=== PATIENT | female | born 1965 | race Caucasian/White ===

== ENCOUNTER → 2023-10-11 15:12 | Outpatient (REF) | payer BC, SELFPAY | LOC: RAD 15:12 | PROVIDERS: ATTENDING PHYSICIAN Orthopaedic Surgery; FAMILY PHYSICIAN Family Medicine | DX: Z01.818 Encounter for other preprocedural examination (principal) | CPT/HCPCS: 93005 ==

== ENCOUNTER 2023-10-12 06:17 | Day surgery (SDC) | payer BC, SELFPAY ==
[2023-10-12] VITALS (10 sets, daily range): BP systolic 101–126; BP diastolic 63–79; BMI 23.2
[2023-10-12] MEDS: CELEBREX 200 MG PO (06:29)
[2023-10-12] MEDS: TYLENOL 1000 MG PO (06:29)
[2023-10-12] MEDS: NORMOSOL-R/PLASMALYTE-A 1000 IV (06:30)
[2023-10-12] MEDS: ROXICODONE 5 MG PO (09:06)
== END 2023-10-12 10:16 | disposition home or self-care (01) ==
LOC: SDS 06:17
PROVIDERS: ATTENDING PHYSICIAN Orthopaedic Surgery
DX: S83.231A Complex tear of medial meniscus, current injury, right knee, initial encounter (principal); X50.1XXA Overexertion from prolonged static or awkward postures, initial encounter
CPT/HCPCS: 29881

== ENCOUNTER → 2023-12-15 08:09 | Outpatient (REF) | payer BC, SELFPAY ==
[2023-12-15 09:19] LABS: ALT (SGPT) 32 U/L (0-35); AST (SGOT) 31 U/L (14-36); Albumin 4.2 g/dl (3.5-5.0); Alkaline Phosphatase 45 U/L (38-126); Blood Urea Nitrogen 29 mg/dl (7-17); Calcium 9.4 mg/dl (8.4-10.2); Carbon Dioxide 31 mmol/L (22-30); Chloride 102 mmol/L (98-107); Glucose 90 mg/dl (70-99); HDL Cholesterol 81 mg/dl; LDL Cholesterol, Calculated 87 mg/dl; Potassium 4.9 mmol/L (3.5-5.1); Sodium 142 mmol/L (135-145); Total Bilirubin 0.4 mg/dl (0.2-1.3); Total Cholesterol 177 mg/dl (50-199); Total Protein 6.8 g/dl (6.3-8.2); Triglyceride 49 mg/dl (10-149); Very Low Density Lipoprotein 9 mg/dl (0-30); eGFR > 60.00
[2023-12-15 09:49] LABS: % Basophils 2.1 % (0-2); % Eosinophils 9.3 % (0-6); % Lymphocytes 37.7 % (20.5-51.1); % Monocytes 8.4 % (1.7-9.3); % Neutrophils 42.5 % (42.2-75.2); Absolute Basophils 0.1 10^3/uL (0-0.2); Absolute Eosinophils 0.5 10^3/uL (0-0.7); Absolute Lymphocytes 1.9 10^3/uL (1.2-3.4); Absolute Monocytes 0.4 10^3/uL (0.1-0.6); Absolute Neutrophils 2.2 10^3/uL (1.4-6.5); Hematocrit 41.5 % (37.0-47.0); Hemoglobin 13.4 g/dL (12.0-16.0); Mean Corp Hgb Conc. 32.3 g/dL (33.0-37.0); Mean Corpuscular Hgb 29.3 pg (27.0-31.0); Mean Corpuscular Volume 90.8 fL (81.0-99.0); Mean Platelet Volume 10.3 fL (7.4-10.4); Nucleated Red Blood Cells % 0 %; Platelet Count 263 10^3/uL (130-400); Red Blood Cell Count 4.57 10^6/uL (4.20-5.40); White Blood Cell Count 5.1 10^3/uL (4.8-10.8)
[2023-12-15 09:51] LABS: TSH Reflex To Free T4 2.22 uIU/ml (0.47-4.68)
== END ==
LOC: REG 08:09
PROVIDERS: ATTENDING PHYSICIAN Nurse Practitioner Adult Health
DX: Z00.00 Encounter for general adult medical examination without abnormal findings (principal); Z79.899 Other long term (current) drug therapy; Z13.29 Encounter for screening for other suspected endocrine disorder
CPT/HCPCS: 36415; 80053; 80061; 84443; 85025

== ENCOUNTER 2024-01-02 09:30 | Emergency (ER) | payer BC, SELFPAY ==
[2024-01-02 09:32] VITALS: BP 112/78
[2024-01-02 10:31] VITALS: BMI 23.5
--- NOTE | 2024-01-02 10:50 | ED.GENMED ---
History of Present Illness
General
Chief Complaint: Bowel Problem
Source: patient
Exam Limitations: none
Time Seen by Provider: 01/02/24 10:16
Nursing documentation reviewed up to this point in time: agreed with
History of Present Illness
History of Present Illness:
Patient presents ED secondary to persistent lower abdominal pain over the past 3 days. Abdominal pain described as sharp, across lower abdomen, worse with meals, without any alleviating factors. Denies fever or chills. Denies trauma. Denies back
pain. Denies difficulty with urination. Denies previous history of similar symptoms. Denies recent illness.
Past History
Past History
ED Past Medical History: None
ED Past Surgical History: Gynecological (hyster)
Social History
Tobacco: Non-smoker
Alcohol: Occasional
Family History
Family History: Diabetes
Review of Systems
Review of Systems
Allergies reviewed?: Yes
Constitutional: Reports no symptoms; Denies fever
ABD/GI: Reports abdominal pain; Denies nausea, vomiting or diarrhea
: Reports no symptoms
Musculoskeletal: Reports no symptoms
Skin: Reports no symptoms
Neurological: Reports no symptoms
Phy Exam
Physical Exam
Physical Exam:
Physical Exam
General: no apparent distress, not acutely ill. afebrile
Head: nc/at. eomi
Neck: supple. no meningeal signs.
Abdomen: normal bowel sounds. mild suprapubic/LLQ tenderness to palpation, without rebound/guarding
Neuro: alert and oriented. no focal neurological deficits
Skin: no rash
Psychiatric: well kept. interactive and cooperative
Extremities: no edema. no calf tenderness.
Course
Orders/Labs/Results
Orders:
Orders
01/02/24 10:42
CT Abd/pelvis W Iv Cont Urgent
Comment:
Reason For Exam: LLQ/suprapubic tenderness
01/02/24 10:54
Complete Blood Count/With Diff Urgent
Comprehensive Metabolic Panel Urgent
Abnormal Lab Results
01/02/24
10:54
RBC 3.74 L 10^6/uL
(4.20-5.40)
Hct 35.5 L %
(37.0-47.0)
MCH 34.8 H pg
(27.0-31.0)
Absolute Monos (auto) 1.1 H 10^3/uL
(0.1-0.6)
Lymphocytes % 18.4 L %
(20.5-51.1)
Monocytes % 12.7 H %
(1.7-9.3)
Carbon Dioxide 31 H mmol/L
(22-30)
BUN 18 H mg/dl
(7-17)
01/02/24 10:54
01/02/24 10:54
Vital Signs
Initial and Last Documented VS:
Initial Vital Signs
Temp Pulse Resp BP Pulse Ox
97.7 F 64 18 112/78 99
01/02/24 09:32 01/02/24 09:32 01/02/24 09:32 01/02/24 09:32 01/02/24 09:32
Last Documented Vital Signs
Temp Pulse Resp BP Pulse Ox
97.7 F 63 16 108/71 100
01/02/24 09:32 01/02/24 11:43 01/02/24 11:43 01/02/24 11:43 01/02/24 11:43
MDM/Problems Addressed
MDM/Problems Addressed:
History, exam, and CT abdomen pelvis consistent with acute diverticulitis, without evidence of perforation or abscess formation. Otherwise, patient remains afebrile, hemodynamically stable, and nontoxic-appearing. As such, patient will be
discharged home with antibiotics. Due to what sounds like significant penicillin allergy, patient will be started on Levaquin/Flagyl treatment. Side effects of abx, including refraining from alcohol use as well as potential tendon injury discussed
with patient prior to discharge.
*Critical Care Note
Total Time (30-74mins, 75-104mins- exclusive of procedures): Not Applicable
ED Attending Note
-
Portions of this chart may have been created with voice recognition software.� Occasional wrong word or��sound alike� substitutions may have occurred due to the inherent limitations of voice recognition software.
Discharge Plan
Departure
Patient Disposition: Home (Routine Discharge)
Date of Disposition: 01/02/24
Time of Disposition: 12:16
Patient with high blood pressure during this ER visit?: No
Condition: Good
Discharge Problem:
Diverticulitis
Instructions: Diverticulitis (DC)
Prescriptions:
New
levofloxacin 500 mg tablet
500 mg PO DAILY Qty: 10 0RF
metronidazole 500 mg tablet
500 mg PO TID Qty: 30 0RF
No Action
ibuprofen 200 mg Capsule
400 mg PO Q6H PRN (Reason: pain)
estradiol [Estradiol Transdermal Patch] 0.05 mg/24 hr Patch Weekly
1 patch TRANSDERMAL QWEEK
Metamucil Packet
1 packet PO DAILY
docusate sodium [Stool Softener] 100 mg Capsule
100 mg PO PRN PRN (Reason: constipation)
escitalopram oxalate 10 mg Tablet
10 mg PO DAILY
uqwuwkhm-mnaiyf-bvonvuip acid 500 mg-800 mcg- 50 mg Capsule
1 cap PO DAILY
Vitamin D3
1 dose PO DAILY
calcium
1 dose PO DAILY
Referrals:
UNKNOWN - PT DOES,NOT KNOW [Family Provider] -
Activity Restrictions/Additional Instructions:
As discussed, please follow-up with your primary care physician for reevaluation. Please consider return to ED with worsening symptoms, i.e. fever/worsening pain/vomiting. Your prescriptions have been sent electronically to [facility] pharmacy in
[place].
Interventions
Interventions:
*Risk Screen - Suicide Last Done: 01/02/24 09:32
*General Assessment Last Done: 01/02/24 09:32
*Neglect/Abuse Screening Last Done: 01/02/24 09:32
*Nursing Disposition Last Done: 01/02/24 12:29
NT-Pronhs-Kddftgjvab Assessment Last Done: 01/02/24 10:32
Discharge Date and Time
Discharge Date/Time: 01/02/24 12:29
Print Language: STATELESS
[2024-01-02 11:01] LABS: % Basophils 0.7 % (0-2); % Eosinophils 2.6 % (0-6); % Immature Granulocytes 0.2 % (0-0.5); % Lymphocytes 18.4 % (20.5-51.1); % Monocytes 12.7 % (1.7-9.3); % Neutrophils 65.4 % (42.2-75.2); Absolute Basophils 0.1 10^3/uL (0-0.2); Absolute Eosinophils 0.2 10^3/uL (0-0.7); Absolute Lymphocytes 1.6 10^3/uL (1.2-3.4); Absolute Monocytes 1.1 10^3/uL (0.1-0.6); Absolute Neutrophils 5.6 10^3/uL (1.4-6.5); Hematocrit 35.5 % (37.0-47.0); Mean Corp Hgb Conc. 36.6 g/dL (33.0-37.0); Mean Corpuscular Hgb 34.8 pg (27.0-31.0); Mean Corpuscular Volume 94.9 fL (81.0-99.0); Nucleated Red Blood Cells % 0 %; Platelet Count 225 10^3/uL (130-400); Red Blood Cell Count 3.74 10^6/uL (4.20-5.40); White Blood Cell Count 8.6 10^3/uL (4.8-10.8)
[2024-01-02 11:14] LABS: ALT (SGPT) 27 U/L (0-35); AST (SGOT) 26 U/L (14-36); Alkaline Phosphatase 47 U/L (38-126); Blood Urea Nitrogen 18 mg/dl (7-17); Calcium 8.8 mg/dl (8.4-10.2); Carbon Dioxide 31 mmol/L (22-30); Chloride 101 mmol/L (98-107); Estimated Creatinine Clearance 79 ml/min; Glucose 90 mg/dl (70-99); Potassium 4.5 mmol/L (3.5-5.1); Sodium 138 mmol/L (135-145); Total Bilirubin 0.8 mg/dl (0.2-1.3); Total Protein 6.5 g/dl (6.3-8.2); eGFR > 60.00
[2024-01-02 11:43] VITALS: BP 108/71
== END 2024-01-02 12:29 | disposition home or self-care (01) ==
LOC: EMR 09:30
PROVIDERS: EMERGENCY PHYSICIAN Emergency Medicine
DX: K57.32 Diverticulitis of large intestine without perforation or abscess without bleeding (principal)
CPT/HCPCS: 99284; 74177; 80053; 85025; Q9967

== ENCOUNTER 2024-02-05 02:39 | Emergency (ER) | payer BC, SELFPAY ==
[2024-02-05] VITALS (9 sets, daily range): BP systolic 97–105; BP diastolic 59–72; BMI 22.8
--- NOTE | 2024-02-05 05:03 | ED.GENMED ---
History of Present Illness
<Krystian Francisco DO - Last Filed: 02/05/24 06:47>
General
Chief Complaint: Abdominal Symptoms
Time Seen by Provider: 02/05/24 06:06
<Dilip Cardoza DO, Resident - Last Filed: 02/05/24 11:00>
General
Source: patient, records and family
History of Present Illness
History of Present Illness:
58 female with no reported past medical history presents for an acute episode of left lower quadrant pain and fainting spell. Patient reports she was diagnosed with acute diverticulitis on 01/02/2024, given antibiotics, metronidazole and Levaquin
and subsequently discharged. She had follow-up with a GI doctor who agreed with continuing medications. She also reports she had a second acute flare approximately 1 week prior to this episode where she saw her primary care doctor who gave her
supportive measures, bowel rest and it resolved. She was not given antibiotics during the second flare. This third episode of left lower quadrant pain started abruptly at about 1:30 AM today, patient reports she was in the bathroom having a bowel
movement when she began having extreme left lower quadrant pain. Patient reports she began having vasovagal like prodrome, sweating, flushing nausea she then subsequently passed out. Episode of fainting was witnessed by who reports slight
tonic-clonic movement of the torso, patient did not fall or strike her head. Patient denies tongue biting, return of consciousness took approximately 1 minute, no bowel or bladder incontinence. Patient reports her last colonoscopy was approxi-1
years ago, they did not make any mention diverticulosis/outpouchings at that time. Per GI Dr. Leal it is not uncommon for them neglected to mention diverticulosis in reports.
Past History
<Krystian Francisco DO - Last Filed: 02/05/24 06:47>
Past History
ED Past Medical History: None
ED Past Surgical History: Gynecological (hyster)
Social History
Tobacco: Non-smoker
Alcohol: Occasional
Family History
Family History: Diabetes
Review of Systems
<Dilip Cardoza DO, Resident - Last Filed: 02/05/24 11:00>
Review of Systems
Constitutional: Reports no symptoms; Denies fever
Respiratory: Reports no symptoms
Cardiac: Reports no symptoms
ABD/GI: Reports abdominal pain, nausea and pain
: Reports no symptoms
Musculoskeletal: Reports no symptoms
Neurological: Reports no symptoms
Phy Exam
<Dilip Cardoza DO, Resident - Last Filed: 02/05/24 11:00>
General Physical Exam
General Presentation: well appearing and no apparent distress
General Skin: warm and dry
Cardiovascular Exam
Cardiovascular Exam: regular rate/rhythm, no edema, no murmur and bradycardia
Pulmonary Exam
Pulmonary Exam: lungs clear, no respiratory distress, no crackles, no wheezing and no cough
Gastrointestinal Exam
Gastrointestinal Exam: soft, non distended and tender (Tender left lower quadrant to light and deep palpation. No rebound or guarding on exam)
Neurological Exam
Neurological Exam: alert, oriented x3 and speech normal
Course
<Krystian Francisco, DO - Last Filed: 02/05/24 06:47>
Orders/Labs/Results
Orders:
Orders
02/05/24 02:44
ECG [Electrocardiogram (*1)] Urgent
Reason for Study: Syncope
Other Reason for Exam: VASOVAGAL
02/05/24 02:45
EKG- Treatment ONCE
02/05/24 04:56
Complete Blood Count/With Diff Urgent
Comprehensive Metabolic Panel Urgent
02/05/24 04:59
HYDROmorphone [Dilaudid] 0.5 mg IV NOW STA
Ondansetron Injectable [Zofran] 4 mg IV NOW STA
02/05/24 05:03
Ketorolac [Toradol] 15 mg .ROUTE .STK-MED ONE
Ketorolac [Toradol] 15 mg IV NOW STA
02/05/24 05:04
Ketorolac [Toradol] 15 mg IV NOW STA
02/05/24 06:26
CT Abd/pel W Iv And Oral Contr Urgent
Comment:
Reason For Exam: Left lower quadrant pain
Iohexol [Omnipaque] See Protocol PO NOW STA
02/05/24 10:19
Amoxicillin 875 mg/Clav 125 mg [Augmentin 875 mg/125 mg] 1 tablet PO NOW STA
Abnormal Lab Results
02/05/24
04:56
MCHC 32.5 L g/dL
(33.0-37.0)
Absolute Neuts (auto) 7.8 H 10^3/uL
(1.4-6.5)
Absolute Monos (auto) 0.8 H 10^3/uL
(0.1-0.6)
Lymphocytes % 16.4 L %
(20.5-51.1)
BUN 24 H mg/dl
(7-17)
Glucose 116 H mg/dl
(70-99)
02/05/24 04:56
02/05/24 04:56
Vital Signs
Initial and Last Documented VS:
Initial Vital Signs
Temp Pulse Resp BP Pulse Ox
97.7 F 64 18 100/64 100
02/05/24 02:42 02/05/24 02:42 02/05/24 02:42 02/05/24 02:42 02/05/24 02:42
Last Documented Vital Signs
Temp Pulse Resp BP Pulse Ox
97.7 F 47 12 97/64 96
02/05/24 02:42 02/05/24 10:00 02/05/24 10:00 02/05/24 10:00 02/05/24 10:00
&;Dilip Fekete, DO, Resident - Last Filed: 02/05/24 11:00>
Orders/Labs/Results
Orders:
Orders
02/05/24 02:44
ECG [Electrocardiogram (*1)] Urgent
Reason for Study: Syncope
Other Reason for Exam: VASOVAGAL
02/05/24 02:45
EKG- Treatment ONCE
02/05/24 04:56
Complete Blood Count/With Diff Urgent
Comprehensive Metabolic Panel Urgent
02/05/24 04:59
HYDROmorphone [Dilaudid] 0.5 mg IV NOW STA
Ondansetron Injectable [Zofran] 4 mg IV NOW STA
02/05/24 05:03
Ketorolac [Toradol] 15 mg .ROUTE .STK-MED ONE
Ketorolac [Toradol] 15 mg IV NOW STA
02/05/24 05:04
Ketorolac [Toradol] 15 mg IV NOW STA
02/05/24 06:26
CT Abd/pel W Iv And Oral Contr Urgent
Comment:
Reason For Exam: Left lower quadrant pain
Iohexol [Omnipaque] See Protocol PO NOW STA
02/05/24 10:19
Amoxicillin 875 mg/Clav 125 mg [Augmentin 875 mg/125 mg] 1 tablet PO NOW STA
Abnormal Lab Results
02/05/24
04:56
MCHC 32.5 L g/dL
(33.0-37.0)
Absolute Neuts (auto) 7.8 H 10^3/uL
(1.4-6.5)
Absolute Monos (auto) 0.8 H 10^3/uL
(0.1-0.6)
Lymphocytes % 16.4 L %
(20.5-51.1)
BUN 24 H mg/dl
(7-17)
Glucose 116 H mg/dl
(70-99)
12/31/24 04:56
02/05/24 04:56
Vital Signs
Initial and Last Documented VS:
Initial Vital Signs
Temp Pulse Resp BP Pulse Ox
97.7 F 64 18 100/64 100
02/05/24 02:42 02/05/24 02:42 02/05/24 02:42 02/05/24 02:42 02/05/24 02:42
Last Documented Vital Signs
Temp Pulse Resp BP Pulse Ox
97.7 F 47 12 97/64 96
02/05/24 02:42 02/05/24 10:00 02/05/24 10:00 02/05/24 10:00 02/05/24 10:00
<Joceline Hein MD - Last Filed: 02/05/24 10:22>
Orders/Labs/Results
Orders:
Orders
02/05/24 02:44
ECG [Electrocardiogram (*1)] Urgent
Reason for Study: Syncope
Other Reason for Exam: VASOVAGAL
02/05/24 02:45
EKG- Treatment ONCE
02/05/24 04:56
Complete Blood Count/With Diff Urgent
Comprehensive Metabolic Panel Urgent
02/05/24 04:59
HYDROmorphone [Dilaudid] 0.5 mg IV NOW STA
Ondansetron Injectable [Zofran] 4 mg IV NOW STA
02/05/24 05:03
Ketorolac [Toradol] 15 mg .ROUTE .STK-MED ONE
Ketorolac [Toradol] 15 mg IV NOW STA
02/05/24 05:04
Ketorolac [Toradol] 15 mg IV NOW STA
02/05/24 06:26
CT Abd/pel W Iv And Oral Contr Urgent
Comment:
Reason For Exam: Left lower quadrant pain
Iohexol [Omnipaque] See Protocol PO NOW STA
02/05/24 10:19
Amoxicillin 875 mg/Clav 125 mg [Augmentin 875 mg/125 mg] 1 tablet PO NOW STA
Abnormal Lab Results
02/05/24
04:56
MCHC 32.5 L g/dL
(33.0-37.0)
Absolute Neuts (auto) 7.8 H 10^3/uL
(1.4-6.5)
Absolute Monos (auto) 0.8 H 10^3/uL
(0.1-0.6)
Lymphocytes % 16.4 L %
(20.5-51.1)
BUN 24 H mg/dl
(7-17)
Glucose 116 H mg/dl
(70-99)
02/05/24 04:56
02/05/24 04:56
Vital Signs
Initial and Last Documented VS:
Initial Vital Signs
Temp Pulse Resp BP Pulse Ox
97.7 F 64 18 100/64 100
02/05/24 02:42 02/05/24 02:42 02/05/24 02:42 02/05/24 02:42 02/05/24 02:42
Last Documented Vital Signs
Temp Pulse Resp BP Pulse Ox
97.7 F 47 12 97/64 96
02/05/24 02:42 02/05/24 10:00 02/05/24 10:00 02/05/24 10:00 02/05/24 10:00
<Dilip Cardoza DO, Resident - Last Filed: 02/05/24 11:00>
MDM/Problems Addressed
Differential Diagnosis Includes:
Acute diverticulitis flare, appendicitis, kidney stone, vasovagal syncope
MDM/Problems Addressed:
58 female presents for an acute episode of left lower quadrant pain at 130 this morning
pain woke her up in middle of the night patient reports while on the toilet attempting to having a bowel movement she began having vasovagal like prodrome, nausea, sweating, flushing and had a brief episode fainting
Fainting episode was witnessed by , reports she had some slight tonic-clonic movements of the torso, she did not fall and hit her head, reports return of consciousness took approximately 1 minute
Suspicion for seizure low, likely vasovagal syncope secondary to pain glucose high in ED electrolytes within normal, no history of seizures. Patient reports having a bowel movement in the waiting room of the ED
Patient reports this is her third bout of left lower quadrant pain in the past month, she has had follow-up with a GI doctor at [place] and her primary care physician. Her first episode was treated with metronidazole and Levaquin
She had 1 more episode 1 week prior, this was treated by her PCP with bowel rest and supportive measures, no antibiotics
EKG in emergency department demonstrated sinus bradycardia�patient reports this is normal for her, no chest pain or palpitations prior to fainting spell
On physical exam abdomen is tender in the left lower quadrant only to light and deep palpation, no rebound or guarding present on exam
Symptomatic management with IV Toradol and IV hydromorphone
IV fluid normal saline bolus
Will order CT abdomen pelvis with IV and oral contrast
Educated patient on disease prognosis of diverticulitis, patient reports she would like to follow-up with GI at [place] however she is unable to get an appointment until May
Patient reports her last colonoscopy was approximately 1 year prior, they did not comment on any diverticulosis/outpouchings at that time. She was told by GI Dr. Leal this is not uncommon for the neglect to mention this during colonoscopies
CT abdomen pelvis was read as findings suggesting possible colitis. They did not mention diverticulitis in the read. We reached out to GI doctor on-call who mentioned that sometimes radiology does not read acute diverticulitis as such and will
read as colitis. Patient does not have clinical symptoms consistent with colitis, no diarrhea, no fever, white count within normal limits.
GI recommended that if clinical picture is suspicious for diverticulitis to treat as assumed diverticulitis. GI recommended 2 weeks of oral for acute diverticulitis as patient is previously treated with metronidazole and Levaquin. Patient does
have a allergy to penicillins in the chart, she reports she has tolerated similar medications in the past. We will give patient one-time dose of Augmentin and monitor for 20 minutes before discharge. If patient tolerates medication well will send
home with 2-week course of oral Augmentin, and are facilitating prompt follow-up with GI. Reached out to [facility] to expedite an appointment, appoint was made for 1-2 25.
Patient tolerated oral Augmentin well, no reaction, no hives, no rash, no anaphylaxis. Will prescribe patient a 2-week course of oral Augmentin 875/125 twice daily by mouth to be continued unless told otherwise by PCP or GI doctor.
<Dilip Cardoza DO, Resident - Last Filed: 02/05/24 11:00>
*Critical Care Note
Total Time (30-74mins, 75-104mins- exclusive of procedures): Not Applicable
ED Attending Note
<Krystian Francisco DO - Last Filed: 02/05/24 06:47>
-
Portions of this chart may have been created with voice recognition software.� Occasional wrong word or��sound alike� substitutions may have occurred due to the inherent limitations of voice recognition software.
<Joceline Hein MD - Last Filed: 02/05/24 10:22>
ED Attending Note
Patient seen and examined by attending physician: Yes
I performed the substantive portion of visit, reviewed & personally made and approve the management plan that is documented in note by myself or STEVAN.: Yes
I performed a history and physical exam of patient and discussed management with resident, I reviewed resident's note and agree with documented findings and plan of care.: Yes
ED Attending Note:
58-year-old female with recent episodes of diverticulitis presents emergency department after having an episode of pain that woke her up in the middle the night looking in the left lower quadrant. The pain was rather abrupt in onset and also
sometimes in the left back area. She got out of bed and sat on the toilet because she felt like she might need to have a bowel movement. She then started to feel lightheaded, sweaty, nauseous and reportedly had a syncopal event lasting just under
a minute. There was some myoclonic jerks noted with this, no tongue biting or incontinence, no postictal episode. Patient continues to have discomfort in the left lower quadrant although better now since presenting the emergency department.
Patient denies chest pain, palpitations, dyspnea, upper back pain, severe headache, or other complaints. On exam, abdomen soft, mild tenderness to palpation noted in the left lower quadrant without rebound or guarding. Overall well-appearing.
Labs CT all pending. Differential diagnosis includes but not limited to diverticulitis, kidney stone, bowel obstruction, colitis, etc. etc. Sinus bradycardia noted on ECG without acute ischemic changes. Bradycardia is baseline for him.
CT 1).Imaging for bowel pathology is limited by the lack of enteric contrast
There is mild bowel wall thickening in the sigmoid colon suggesting possible colitis
.
2). There is moderate to large volume of feces throughout the colon suggesting possible constipation
3). 3 cm hepatic hemangioma
History and physical very concerning/consistent with suspected acute diverticulitis. However, CT notes colitis. Patient denies diarrhea, bright red blood per rectum, etc. Case discussed with Dr. Reyez from GI, aware of history, physical, CT, etc.
Agrees that diagnosis very likely acute diverticulitis and recommends 2 weeks of Augmentin and GI follow-up. Given that patient has had now 3 episodes of acute diverticulitis and just 6 months, and has not yet seen GI, I left a message on the GI
[facility] line via [employer] text. Long discussion with patient regarding risks and benefits of medication. She has had a rash with penicillin in the past, but is safely taken amoxicillin in the past. We will give her first dose here. Discussed
with patient portance of follow-up and reasons to return to the ER. She is tolerating p.o., comfortable, nontoxic, and meets criteria for outpatient management
Discharge Plan
Departure
Patient Disposition: Home (Routine Discharge)
Date of Disposition: 02/05/24
Time of Disposition: 10:54
Patient with high blood pressure during this ER visit?: No
Condition: Good
Discharge Problem:
Acute diverticulitis
Instructions: Diverticulitis, Gastrointestinal tract perforation, Diverticulitis - Discharge instructions, Diverticulosis, Abdominal Pain
Prescriptions:
New
amoxicillin-pot clavulanate 875-125 mg tablet
1 tab PO Q12H Qty: 28 0RF
No Action
ibuprofen 200 mg Capsule
400 mg PO Q6H PRN (Reason: pain)
estradiol [Estradiol Transdermal Patch] 0.05 mg/24 hr Patch Weekly
1 patch TRANSDERMAL QWEEK
Metamucil Packet
1 packet PO DAILY
docusate sodium [Stool Softener] 100 mg Capsule
100 mg PO PRN PRN (Reason: constipation)
escitalopram oxalate 10 mg Tablet
10 mg PO DAILY
lmveshxz-oclgzg-foodqjni acid 500 mg-800 mcg- 50 mg Capsule
1 cap PO DAILY
Vitamin D3
1 dose PO DAILY
calcium
1 dose PO DAILY
levofloxacin 500 mg tablet
500 mg PO DAILY Qty: 10 0RF
metronidazole 500 mg tablet
500 mg PO TID Qty: 30 0RF
Referrals:
Soni Weiss CRNP [Family Provider] - Call in 1-3 days for appt
Activity Restrictions/Additional Instructions:
Please follow-up with GI doctor during your appointment at [facility] on 02/07/2024
Please follow-up with your primary care provider, call in 1 to 3 days to schedule an appointment
Please take oral Augmentin twice a day by mouth for a total of 2 weeks unless told otherwise by your primary care provider or gastrointestinal
Please return to the emergency department if you notice any acute, sharp and severe abdominal pain, or with any concerns. Instructions on diverticulitis, diverticulosis, GI tract perforation are all included
Interventions
Interventions:
*Risk Screen - Suicide Last Done: 02/05/24 02:42
*General Assessment Last Done: 02/05/24 04:56
*Neglect/Abuse Screening Last Done: 02/05/24 02:42
ED- Fall Risk Assessment Last Done: 02/05/24 05:27
*ED COVID-19 Vaccine History Last Done: 02/05/24 04:56
AF-Enovta-Dichjbcipu Assessment Last Done: 02/05/24 05:27
Discharge Date and Time
Print Language: MALTESE
[2024-02-05] MEDS: TORADOL 15 MG IV (05:04)
[2024-02-05] MEDS: ZOFRAN 4 MG IV (05:04)
[2024-02-05 05:25] LABS: ALT (SGPT) 30 U/L (0-35); AST (SGOT) 25 U/L (14-36); Albumin 3.9 g/dl (3.5-5.0); Alkaline Phosphatase 72 U/L (38-126); Blood Urea Nitrogen 24 mg/dl (7-17); Calcium 8.7 mg/dl (8.4-10.2); Carbon Dioxide 28 mmol/L (22-30); Chloride 103 mmol/L (98-107); Estimated Creatinine Clearance 70 ml/min; Glucose 116 mg/dl (70-99); Sodium 138 mmol/L (135-145); Total Bilirubin 0.3 mg/dl (0.2-1.3); Total Protein 6.3 g/dl (6.3-8.2); eGFR > 60.00
[2024-02-05] MEDS: OMNIPAQUE 50 ML PO (06:49)
[2024-02-05 06:57] LABS: White Blood Cell Count 10.6 10^3/uL (4.8-10.8)
[2024-02-05 06:58] LABS: % Basophils 0.8 % (0-2); % Eosinophils 1.3 % (0-6); % Immature Granulocytes 0.4 % (0-0.5); % Lymphocytes 16.4 % (20.5-51.1); % Monocytes 7.5 % (1.7-9.3); % Neutrophils 73.6 % (42.2-75.2); Absolute Basophils 0.1 10^3/uL (0-0.2); Absolute Eosinophils 0.1 10^3/uL (0-0.7); Absolute Lymphocytes 1.7 10^3/uL (1.2-3.4); Absolute Monocytes 0.8 10^3/uL (0.1-0.6); Absolute Neutrophils 7.8 10^3/uL (1.4-6.5); Hematocrit 40.9 % (37.0-47.0); Hemoglobin 13.3 g/dL (12.0-16.0); Mean Corp Hgb Conc. 32.5 g/dL (33.0-37.0); Mean Corpuscular Hgb 29.5 pg (27.0-31.0); Mean Corpuscular Volume 90.7 fL (81.0-99.0); Mean Platelet Volume 10.2 fL (7.4-10.4); Nucleated Red Blood Cells % 0 %; Platelet Count 247 10^3/uL (130-400); Red Blood Cell Count 4.51 10^6/uL (4.20-5.40); Red Cell Dist. Width 13.1 % (11.5-14.5)
[2024-02-05] MEDS: AUGMENTIN 875 MG/125 MG 1 TABLET PO (10:25)
== END 2024-02-05 11:24 | disposition home or self-care (01) ==
LOC: EMR 02:39
PROVIDERS: Emergency Medicine; EMERGENCY PHYSICIAN Emergency Medicine; FAMILY PHYSICIAN Nurse Practitioner Adult Health
DX: K57.32 Diverticulitis of large intestine without perforation or abscess without bleeding (principal)
CPT/HCPCS: 96374; 96375; 99284; 74177; 80053; 85025; 93005; Q9967

== ENCOUNTER 2024-04-02 06:33 | Day surgery (SDC) | payer BC, SELFPAY | END 2024-04-02 11:46 | disposition home or self-care (01) | LOC: GI 06:33 | PROVIDERS: ATTENDING PHYSICIAN Internal Medicine Gastroenterology | DX: K57.30 Diverticulosis of large intestine without perforation or abscess without bleeding (principal); K64.8 Other hemorrhoids; D12.3 Benign neoplasm of transverse colon; K57.32 Diverticulitis of large intestine without perforation or abscess without bleeding | CPT/HCPCS: 45385; 88305 ==

== ENCOUNTER 2024-12-05 09:21 | Emergency (ER) | payer BC, SELFPAY ==
[2024-12-05] VITALS (7 sets, daily range): BP systolic 98–130; BP diastolic 66–80
[2024-12-05 10:30] LABS: ALT (SGPT) 24 U/L (0-35); AST (SGOT) 25 U/L (14-36); Albumin 4.0 g/dl (3.5-5.0); Alkaline Phosphatase 42 U/L (38-126); Blood Urea Nitrogen 36 mg/dl (7-17); Calcium 9.1 mg/dl (8.4-10.2); Carbon Dioxide 30 mmol/L (22-30); Chloride 103 mmol/L (98-107); Glucose 84 mg/dl (70-99); Potassium 4.3 mmol/L (3.5-5.1); Sodium 137 mmol/L (135-145); Total Protein 6.5 g/dl (6.3-8.2); eGFR 47.96
[2024-12-05 10:41] LABS: Troponin I < 0.012 ng/ml
[2024-12-05 11:02] LABS: Hematocrit 40.9 % (37.0-47.0); Hemoglobin 13.2 g/dL (12.0-16.0); Mean Corp Hgb Conc. 32.3 g/dL (33.0-37.0); Mean Corpuscular Volume 92.1 fL (81.0-99.0); Nucleated Red Blood Cells % 0 %; Platelet Count 250 10^3/uL (130-400); Red Cell Dist. Width 12.9 % (11.5-14.5)
--- NOTE | 2024-12-05 11:16 | ED.GENMED ---
History of Present Illness
General
Chief Complaint: Chest Pain
Time Seen by Provider: 12/05/24 10:39
History of Present Illness
History of Present Illness:
Patient is a 59-year-old woman who is otherwise healthy presenting to the emergency department with chest pain. Patient states that this morning she was sitting at her desk when she developed a flutter in her chest and then had dizziness nausea and
sweating. She states that she might of worked herself up which is why she got sweaty and nauseous. She denies having this again. She does state that her heart rate normally is in the 40s and her blood pressure is usually in the low 100s. She is
active. She denies any chest pain shortness of breath leg swelling hemoptysis. No long car rides or plane rides. No malignancy. She is on hormone replacement therapy.
Past History
Past History
ED Past Medical History: None
ED Past Surgical History: Gynecological (hyster)
Social History
Tobacco: Non-smoker
Alcohol: Occasional
Family History
Family History: Diabetes
Phy Exam
Physical Exam
Physical Exam:
GENERAL: in no acute distress
HEENT: normocephalic, extraocular movements intact, moist oral mucosa
NECK: normal inspection
RESPIRATORY: no respiratory distress, clear to auscultation bilaterally
CARDIOVASCULAR: regular rhythm bradycardic rate
ABDOMEN/: soft, non-distended, non-tender to palpation, no rebound or guarding
EXTREMITIES: non-tender, no edema/swelling
NEUROLOGIC: awake and alert, moves all extremities
SKIN: warm
Scores
Heart Score for Chest Pain Patients
STEMI patient?: No
History: Slightly or Non-Suspicious
ECG: Normal
Age: >45 - <65 years
Risk Factors: No Risk Factors
Troponin: </= Normal Limit
Heart Score for Chest Pain Patients: 1
Heart Score Risk: 2.5% MACE over next 6 weeks
Course
Orders/Labs/Results
Orders:
Orders
12/05/24 09:28
Electrocardiogram (*1) Urgent
Reason for Study: Chest Pain
12/05/24 09:29
EKG- Treatment ONCE
12/05/24 09:55
Complete Blood Count/With Diff Urgent
TSH Reflex To Free T4 Urgent
Comment: ADD ON
Troponin I Urgent
12/05/24 09:56
Comprehensive Metabolic Panel Urgent
Magnesium Urgent
12/05/24 10:40
Electrocardiogram (*1) Urgent
Reason for Study: Palpitations
EKG- Treatment ONCE
12/05/24 10:50
Add On- LAB Urgent
Tests Added?: magnesium
12/05/24 11:20
Add On- LAB Urgent
Tests Added?: magnesiu, thyroid
12/05/24 13:16
Troponin I Urgent
Abnormal Lab Results
12/05/24 12/05/24
09:55 09:56
MCHC 32.3 L g/dL
(33.0-37.0)
MPV 10.6 H fL
(7.4-10.4)
BUN 36 H mg/dl
(7-17)
Creatinine 1.3 H mg/dL
(0.6-1.0)
12/05/24 09:55
12/05/24 09:56
Vital Signs
Initial and Last Documented VS:
Initial Vital Signs
Temp Pulse Resp BP Pulse Ox
98.3 F 54 18 130/80 100
12/05/24 09:25 12/05/24 09:25 12/05/24 09:25 12/05/24 09:25 12/05/24 09:25
Last Documented Vital Signs
Temp Pulse Resp BP Pulse Ox
98.3 F 45 16 108/66 97
12/05/24 09:25 12/05/24 15:00 12/05/24 14:45 12/05/24 15:00 12/05/24 15:00
MDM/Problems Addressed
Differential Diagnosis Includes:
Patient is a 59-year-old woman presenting to the emergency department with fluttering sensation in her chest as well as some chest tightness when this occurred earlier this morning. On arrival heart rates in the 40s to 50s and exam is otherwise
reassuring. Differential consists of arrhythmia versus electrolyte derangement versus near syncope. Will check blood work EKG.
*Pulse Oximetry
SaO2: 96
Oxygen Mode of Delivery: Room air
Patient hypoxic: no
*Critical Care Note
Total Time (30-74mins, 75-104mins- exclusive of procedures): Not Applicable
Update Note
Update Note:
EKG per my interpretation sinus bradycardia. Blood work reassuring. I did review the monitor and patient remained in sinus bradycardia the entire time. No PVCs. Patient denies any recurrence of her symptoms. Will discharge at this time with
outpatient follow-up and likely Holter monitoring.
ED Attending Note
-
Portions of this chart may have been created with voice recognition software.� Occasional wrong word or��sound alike� substitutions may have occurred due to the inherent limitations of voice recognition software.
Discharge Plan
Departure
Patient Disposition: Home (Routine Discharge)
Date of Disposition: 12/05/24
Time of Disposition: 15:26
Patient with high blood pressure during this ER visit?: No
Discharge Problem:
Bradycardia, sinus
Instructions: Ambulatory heart monitoring
Prescriptions:
No Action
ibuprofen 200 mg Capsule
400 mg PO Q6H PRN (Reason: pain)
estradiol [Estradiol Transdermal Patch] 0.05 mg/24 hr Patch Weekly
1 patch TRANSDERMAL QWEEK
Metamucil Packet
1 packet PO DAILY
docusate sodium [Stool Softener] 100 mg Capsule
100 mg PO PRN PRN (Reason: constipation)
escitalopram oxalate 10 mg Tablet
10 mg PO DAILY
sldezpjn-gkmhiw-hxirwkwd acid 500 mg-800 mcg- 50 mg Capsule
1 cap PO DAILY
Vitamin D3
1 dose PO DAILY
calcium
1 dose PO DAILY
levofloxacin 500 mg tablet
500 mg PO DAILY Qty: 10 0RF
metronidazole 500 mg tablet
500 mg PO TID Qty: 30 0RF
amoxicillin-pot clavulanate 875-125 mg tablet
1 tab PO Q12H Qty: 28 0RF
Referrals:
Soni Weiss CRNP [Family Provider, Internal Medicine]
Activity Restrictions/Additional Instructions:
You have been evaluated in the Emergency Department today. Your evaluation did not show evidence of medical conditions requiring emergent intervention at this time, however we recommend you follow up with your primary care provider for further
testing as an outpatient.
Please follow up with your primary care doctor in 2-3 days.
Return to the ER immediately for worsening or uncontrolled symptoms, headache, chest pain, shortness of breath, persistent vomiting, vision changes, recurrent fainting, or for any other concerning symptoms.
Thank you for choosing us for your care.
Interventions
Interventions:
*Risk Screen - Suicide Last Done: 12/05/24 09:25
*General Assessment Last Done: 12/05/24 09:58
*Neglect/Abuse Screening Last Done: 12/05/24 09:25
*ED- Fall Risk Assessment Last Done: 12/05/24 09:58
*ED COVID-19 Vaccine History Last Done: 12/05/24 09:58
*ED Influenza Vaccine History Last Done: 12/05/24 09:58
ED- Cardiac Assessment Last Done: 12/05/24 10:07
Discharge Date and Time
Print Language: CITIZ[place]
[2024-12-05 11:55] LABS: Magnesium 1.8 mg/dl (1.6-2.3)
[2024-12-05 13:46] LABS: Troponin I < 0.012 ng/ml
== END 2024-12-05 15:36 | disposition home or self-care (01) ==
LOC: EMR 09:21
PROVIDERS: EMERGENCY PHYSICIAN Student in an Organized Health Care Education/Training Program; FAMILY PHYSICIAN Nurse Practitioner Adult Health
DX: R00.1 Bradycardia, unspecified (principal); I48.92 Unspecified atrial flutter; Z79.890 Hormone replacement therapy; Z83.3 Family history of diabetes mellitus
CPT/HCPCS: 99283; 80053; 83735; 84443; 84484; 85025; 93005

== ENCOUNTER 2025-02-04 10:09 | Outpatient (RCR) | payer BC, SELFPAY | END 2025-02-04 23:59 | disposition home or self-care (01) | LOC: RPT 10:09 | PROVIDERS: ATTENDING PHYSICIAN Internal Medicine Gastroenterology; FAMILY PHYSICIAN Nurse Practitioner Adult Health | DX: K59.04 Chronic idiopathic constipation (principal); Z73.6 Limitation of activities due to disability; M62.81 Muscle weakness (generalized); M25.552 Pain in left hip; R10.30 Lower abdominal pain, unspecified | CPT/HCPCS: 97110; 97140; 97161; 97530 ==